=== PATIENT | female | born 1965 | race Caucasian/White ===

== ENCOUNTER 2019-07-05 06:29 | Inpatient (IN) ==
--- NOTE | 2019-06-20 12:50 | Anesthesiology Consultation ---
Date of Service June 20, 2019 Assessment & Plan (1) Encounter for pre-operative examination: - Phentermine instructions: patient advised to stop 5 days prior to surgery Chart Review Chart Review: Pending: Refer to Additional Notes / Consult section (pending preop testing (labs, EKG, CXR)) and Patient seen in Pre Admission Testing Teaching & Discussion Pre-Anesthesia Teaching/Discussion Notes: Instructed NPO after midnight before surgery,except medications with 15 cc of water. Medication instructions provided according to the PAT guidelines. History Surgery Operation Date: 07/05/19 10:40 Proposed Procedures p Right Total Hip Replacement - Anmol Jose MD Height/Weight Height: 5 ft 5 in Weight: 91.9 kg Allergies Allergy/AdvReac Type Severity Reaction Status Date / Time Sulfa (Sulfonamide AdvReac Unknown "depressed" Verified 06/20/19 12:50 Antibiotics) feeling Medications Home Medications Medication Instructions Recorded Confirmed Last Taken Vitamin D3 1 dose PO 3XWK 06/13/19 06/13/19 Unknown clonazepam 0.5 mg PO UD PRN 06/13/19 06/13/19 Unknown cyanocobalamin (vitamin B-12) 2,500 mcg PO 3XWK 06/13/19 06/13/19 Unknown [Vitamin B-12] lactobacillus combination no.4 3,000 mmu cells PO DAILY 06/13/19 06/13/19 Unknown [Probiotic] lisinopril 5 mg PO UD PRN 06/13/19 06/13/19 Unknown meloxicam 15 mg PO QAM 06/13/19 06/13/19 Unknown phentermine [Adipex-P] 37.5 mg PO 4XWK 06/13/19 06/13/19 Unknown Past Medical History Medical History Borderline high cholesterol Elevated systolic blood pressure reading without diagnosis of hypertension Intermittent elevated BP readings in setting of taking phentermine which patient takes 4x/week for weight loss. She takes lisinopril to take when she takes phentermine Obesity Osteoarthritis Exercise / Class Metabolic Activity II 4-5 Yardwork/Stairs/Walk up hill Past Family History Family History Father Family history of bone cancer Family history of kidney cancer Family history of brain cancer Family history of diabetes mellitus Past Surgical History Surgical History History of colonoscopy History of plastic surgery B/L breast lift History of tonsillectomy History of vaginal surgery cyst excision History of vascular surgery B/L LE laser procedure for "superficial veins" Past Anesthesia History No Hx of Anesthesia Complications and No Family Hx of Anesthesia Complications History of PONV No Hx of PONV and No Hx of Motion Sickness Social History Smoking Status: Former smoker Do You Dip or Chew Tobacco: No Smoking End Date: QUIT 20 YEARS AGO Hx Alcohol Use: Yes Alcohol type: hard liquor alcohol intake frequency: other Alcohol Intake Frequency Comment: WEEKENDS (10-15 DRINKS/WEEKEND TOTAL) Hx Substance Use: No substance use type: does not use Review of Systems Patient denies chest pain, shortness of breath, reflux, cough, wheezing, palpitations. Physical Exam Vital Signs Last Vital Signs Temp 36.7 C 06/20/19 12:51 Pulse 89 06/20/19 12:51 Resp 16 06/20/19 12:51 BP 133/89 06/20/19 12:51 Pulse Ox 98 06/20/19 12:51 PHYSICAL Full neck and c-spine range of motion. Full TMJ range of motion. TMD 3.5 finger breaths Mallampati Score 1 Dentition: intact, crowns on sides, temporaries will be seeded on right lower sides prior to surgery (surgeon made aware) Lungs: clear throughout to auscultation Cardiac: regular rate and rhythm, no murmurs noted Spine: normal Carotid arteries: negative bruit Extremities: no edema
--- NOTE | 2019-06-20 13:46 | XRay Report ---
XR chest Pre-admission PA/Lat CLINICAL HISTORY: Preoperative evaluation. COMPARISON STUDY: No previous studies for comparison. FINDINGS: Lung volumes are normal. Lungs are clear. There is no pneumothorax or pleural effusion. Car diac size is normal. Mediastinal contours are normal. There is no evidence for pulmonary edema. IMPRESSION: No acute cardiopulmonary findings. Electronically signed by: Car Wells M.D. 06/20/2019 1:44 PM
[2019-06-20 15:55] LABS: Basophils # (auto) 0.03 K/uL (0-0.2); Basophils % (auto) 0.4 %; Eosinophils # (auto) 0.15 K/uL (0-0.5); Hematocrit (blood only) 42.6 % (37-47); Hemoglobin 14.3 g/dL (12.0-16.0); Immature Granulocytes # (auto) 0.02 K/uL (0.00-0.02); Immature Granulocytes % (auto) 0.3 %; Lymphocytes # (auto) 2.67 K/uL (1.2-3.4); Lymphocytes % (auto) 35.5 %; Mean Corpuscular Hemoglobin 32.6 pg (25-34); Mean Corpuscular Hgb Conc 33.6 g/dL (32-36); Mean Corpuscular Volume 97.3 fL (80-100); Mean Platelet Volume 10.5 fL (7.4-10.4); Monocytes # (auto) 0.76 K/uL (0.11-0.59); Monocytes % (auto) 10.1 %; Neutrophils % (auto) 51.7 %; Platelet Count 258 K/uL (130-400); RDW Standard Deviation 46.3 fL (36.4-46.3); Red Blood Count 4.38 M/uL (4.2-5.4); White Blood Count 7.53 K/uL (4.8-10.8)
[2019-06-20 16:07] LABS: BUN Creatinine Ratio 29.9 (10-20); Creatinine Clr Calc Pharmacy 95.1 ml/min; Est GFR (Non-African American) 90.6; Potassium 4.2 mmol/L (3.5-5.1)
[2019-06-20 16:08] LABS: Partial Thromboplastin Ratio 0.9; Partial Thromboplastin Time 25.5 Seconds (21.0-31.0)
--- NOTE | 2019-07-01 18:19 | History and Physical Report ---
DATE OF ADMISSION: 07/05/2019 CHIEF COMPLAINT: Bilateral hip pain and discomfort, right side greater than left. HISTORY OF PRESENT ILLNESS: A 54-year-old white female referred for surgical treatment of her hips. She has got a 3-year history of bilateral hip pain and discomfort, describes it has gotten worse over time. The right side has been worse than the left. She has been through extensive conservative treatment in the past. She had 2 injections into the right hip and 1 on the left. It has given her some temporary relief. Nothing too long lasting. She takes Motrin which takes the edge off at best. She has become more debilitated by her pain. She has difficulty putting her shoes and socks on. The more she walks, the more it hurts. She limps all the time and worse as the day goes on. She has nighttime pain. She would like to have her hip fixed. She would like to do the right one and then the left one maybe 3 months later. PAST MEDICAL HISTORY: 1. Elevated cholesterol. 2. Mild obesity with BMI 34. 3. Arthritis. PAST SURGICAL HISTORY: Include: 1. Tonsillectomy. 2. Breast lift. 3. Cyst removed from her vaginal area. ALLERGIES: SULFA. CURRENT MEDICINES: 1. Meloxicam 15 mg a day. 2. Vitamin B12. 3. Collagen. 4. Vitamin D3. 5. Clonazepam. 6. ZzzQuil. 7. Lisinopril 5 mg a day. 8. Adipex. SOCIAL HISTORY: A 54-year-old white female patient from [place]. She is . One child. Occasional alcohol intake. She does not smoke. She does have a smoking history. FAMILY HISTORY: Significant for heart disease, diabetes, kidney cancer, bone cancer. REVIEW OF SYSTEMS: Negative for diabetes. Denies any chest pain or shortness of breath. No history of DVT or PE. No known bleeding problems. PHYSICAL EXAMINATION: GENERAL: Shows a pleasant, middle-aged female. Looks to be in pretty good health. HEENT: Benign. NECK: Supple, no lymphadenopathy. LUNGS: Clear to auscultation. HEART: Has a regular rate and rhythm. ABDOMEN: Soft, nontender, nondistended. EXTREMITIES: Grossly neurovascularly intact except as follows: Examination of both hips reveal patient walks with a waddling gait. She limps on the right side a bit more than the left. Leg lengths appear pretty equal. Both hips are very stiff. She can internally rotate to only -10 bilaterally. She can externally rotate to about 20 bilaterally. She has pain with rotation of the hips. No knee effusion. She is neurologically intact. X-RAYS: X-rays of both hips reveal advanced bilateral DJD. She has got complete loss of superior joint space bilaterally with Cam impingement. She has cystic change of the femoral head and acetabulum on both sides. She has got osteophytes off the lateral aspect of the femoral head in both sides. ASSESSMENT: A 54-year-old female with advanced bilateral hip degenerative joint disease. She has failed conservative treatment. It is really affecting her quality of life and she elected to proceed with hip replacement surgery. She would like to do the right one and then the left one 3 months later. PLAN: We will take her to the operating room and do a right total hip replacement. The risks and benefits of this procedure were explained to the patient including but not limited to DVT, PE, , infection, neurological injury, vascular injury, bleeding problem, pain, limited range of motion, stiffness, failure to relieve symptoms, incomplete relief of symptoms, need for further surgery in future, fracture, leg length inequality, nerve palsy, etc. The patient understands and desires to proceed. Informed consent was obtained. We did talk about holding her lisinopril the morning of surgery and her Meloxicam 10 days preop. She is planning to be discharged home, using home health. KEITH
[~2019-07-05 06:29] MED LIST: ACETAMINOPHEN 500 MG TAB PO SCH; BUPIVACAINE 0.5 % 5 MG/1 ML PF 10ML VIAL ONE; CEFAZOLIN 2000MG 2,000 MG/15 ML SYR IV SCH; FAMOTIDINE 20 MG TAB PO SCH; GABAPENTIN 600 MG DOSE PO SCH; LR 500ML BOLUS, THEN 15ML/HR IV SCH; LR 60ML/HR IV SCH; METOCLOPRAMIDE HCL 10 MG TABLET PO SCH; TRANEXAMIC ACID 1,000 MG **IV Pre-op IV SCH
--- NOTE | 2019-07-05 06:55 | History & Physical Bridge Note ---
Date of Service July 05, 2019 History & Physical Bridge Note I have examined the patient, reviewed the History & Physical and in the interval since the performance of the History & Physical I have noted the following changes of clinical significance: Patient with Left Hip DJD as well and wants left hip injected under anesthesia. We ill proceed with Right THR and Left HIp Injection.
[2019-07-05] MEDS ORDERED: MIDAZOLAM HCL 1 MG/ML 2ML VIAL ONE ×2 (07:25→09:02)
[2019-07-05] MEDS ORDERED: MoRPHine SULFATE PF 1 MG/ML 10 ML AMP/VIAL ONE (07:25)
[2019-07-05] MEDS ORDERED: BETAMETH SOD PHOS/ACETATE IA 6 MG/ML IM STA (07:25)
[2019-07-05] MEDS ORDERED: fentaNYL citrate 100 MCG/2 ML VIAL ONE (07:25)
[2019-07-05] MEDS ORDERED: PROPOFOL IV EMULSION 10 MG/ML 20 ML VIAL IV ONE ×2 (07:26→09:53)
[2019-07-05] MEDS: SCOPOLAMINE 1.5 MG TDSY TD SCH (07:45)
[2019-07-05] MEDS ORDERED: BUPIVACAINE 0.5 % 5 MG/1 ML MPF 30ML VIAL ONE (07:51)
[2019-07-05] MEDS ORDERED: BACITRACIN INJ 50,000 UNIT VIAL ONE (08:28)
[2019-07-05] MEDS ORDERED: BUPIVACAINE/EPINEPHRINE 0.5% MPF 1:200,000 30 ML VIAL ONE (08:28)
[2019-07-05] MEDS ORDERED: ATROPINE SULFATE 0.1 MG/ML 10ML SYR IV PRN (09:02)
[2019-07-05] MEDS ORDERED: ePHEDrine sulfate 50 MG/ML AMP IV PRN ×2 (09:02→09:03)
[2019-07-05] MEDS ORDERED: NALOXONE HCL 0.4 MG/1 ML VIAL/CARP IV PRN ×2 (09:03→11:36)
[2019-07-05] MEDS ORDERED: NALBUPHINE HCL INJ 10 MG/ML AMP IV PRN (09:03)
[2019-07-05] MEDS ORDERED: MoRPHine SULFATE PF 1 MG/ML 10 ML AMP/VIAL INT SPINAL ONE (09:03)
[2019-07-05] MEDS ORDERED: NALOXONE HCL 1 MG in SODIUM CHLORIDE 0.9% 1000ML 1,000 ML IV PRN (09:03)
[2019-07-05] MEDS ORDERED: ONDANSETRON INJ 2 MG/ML 2 ML VIAL IV PRN ×2 (09:03→11:36)
[2019-07-05] MEDS ORDERED: PROMETHAZINE HCL 25 MG in SODIUM CHLORIDE 0.9% 50 ML IV PRN (09:03)
[2019-07-05] MEDS ORDERED: HYDROmorphone INJ 0.5 MG/0.5 ML SYR IV PRN ×2 (09:03→11:36)
[2019-07-05] MEDS ORDERED: NALOXONE HCL 0.08 MG in SYRINGE 1.8 ML IV PRN (09:03)
[2019-07-05] MEDS ORDERED: LACTATED RINGER'S 500 ML IV PRN (09:03)
[2019-07-05] MEDS ORDERED: DiphenhydrAMINE HCL 50 MG/ML VIAL IV PRN (09:03)
[2019-07-05] MEDS ORDERED: PHENYLEPHRINE HCL 10 MG/ML VIAL ONE (09:11)
[2019-07-05] MEDS ORDERED: SODIUM CHLORIDE 0.9% 1000ML 1,000 ML IV SCH (09:15)
[2019-07-05] MEDS ORDERED: DC INTRASPINAL MORPHINE SCH (09:15)
[2019-07-05] MEDS ORDERED: NO NARCOTICS OR SEDATIVES SCH (09:15)
--- NOTE | 2019-07-05 10:29 | Post Operative Brief Note ---
PG Immediate Post Op with CF Date of Surgery July 05, 2019 Pre & Post Diagnosis Operation Date: 07/05/19 08:50 Pre-Op Diagnosis: Bilateral Hip Advanced Degenerative Joint Disease--Right Greater than Left Post-Op Diagnosis: Bilateral Hip Advanced Degenerative Joint Disease--Right Greater than Left Procedure Operation Date: 07/05/19 08:50 Actual Procedures p Right Total Hip Arthroplasty--Uncemented(Right) - Anmol Jose MD s Injection of Left Hip(Left) - Anmol Jose MD Surgeon Anmol Jose MD Pharmacy Intake Technician Marilin, PAC Estimated Blood Loss 200 Findings Consistent with Post-Op Diagnosis Fluids 1100 cc Specimens Specimen Description: A. Right Femoral Head Drains Verduzco Catheter (A 16 Montserratian verduzco catheter was inserted by Dayami Gifford RN, without difficulty, clear yellow urine obtained, output to be monitored by Anesthesia.) Anesthesia Type Spinal MAC Complications none Disposition Accompanied Patient To Recovery: Yes Disposition: Recovery Room
--- NOTE | 2019-07-05 10:50 | XRay Report ---
AP PELVIS, CROSSTABLE LATERAL RIGHT HIP History: Right total hip arthroplasty. Degenerative arthritis. Postop. FINDINGS: The patient is status post a right total hip arthroplasty. The hardware is intact. No fract ure or dislocation. Skin dionne are in place. IMPRESSION: Right total hip arthroplasty. No evidence for hardware complication Electronically signed by: Martinez Kaufman M.D. 07/05/2019 10:48 AM
--- NOTE | 2019-07-05 10:59 | Anesthesiology Progress Note ---
Date of Service July 05, 2019 Anesthesia Post Procedure Vital Signs Vital Signs: Temp Pulse Pulse Resp BP BP Pulse Ox 07/05/19 10:50 36.8 C 80 16 105/62 97 07/05/19 10:40 76 16 103/60 100 07/05/19 10:30 37.0 C 80 12 108/61 98 07/05/19 07:34 178/96 H 07/05/19 07:16 36.7 C 80 18 190/103 H 98 Transfer of Care Handoff Completed per policy Notes Mental Status: alert / awake / arousable and participated in evaluation Nausea / Vomiting: adequately controlled Pain: adequately controlled Airway Patency, RR, SpO2: stable & adequate BP & HR: stable & adequate Hydration State: stable & adequate Neuraxial Anesthesia: was administered and sensory block is resolving Anesthetic Complications: no major complications apparent and Pt Satisfied with anesthetic care
[2019-07-05] MEDS ORDERED: ALUMINUM/MAGNESIUM SUSP 30 ML UDC PO PRN (11:36)
[2019-07-05] MEDS ORDERED: PHENTERMINE 37.5 MG PO SCH (11:36)
[2019-07-05] MEDS ORDERED: NON-FORMULARY MEDICATION (Cyanocobalamin (Vitamin B-12) [Vitamin B-12] 2,500 MCG) PO SCH (11:36)
[2019-07-05] MEDS ORDERED: TRAMADOL HCL 50 MG TABLET PO PRN (11:36)
[2019-07-05] MEDS ORDERED: bisacodyL 10 MG SUPP PR PRN (11:36)
[2019-07-05] MEDS ORDERED: VITAMIN D3 PO SCH (11:36)
[2019-07-05] MEDS ORDERED: clonazePAM 0.5 MG TAB PO PRN (11:36)
[2019-07-05] MEDS ORDERED: METOCLOPRAMIDE HCL INJ 5 MG/ML 2 ML VIAL IV PRN (11:36)
[2019-07-05] MEDS ORDERED: lisinopriL 5 MG TAB PO PRN (11:36)
[2019-07-05] MEDS ORDERED: MAGNESIUM HYDROXIDE SUSP 30 ML UDC PO PRN (11:36)
[2019-07-05] MEDS: SODIUM CHLORIDE 0.9% 1000ML 1,000 ML IV SCH ×2 (12:28→19:40)
[2019-07-05] MEDS: KETOROLAC 30 MG/ML VIAL IV SCH ×3 (12:28→23:18)
--- NOTE | 2019-07-05 13:37 | Operative Report ---
DATE OF OPERATION: 07/05/2019 SURGEON: Anmol Jose MD SERVICE PROMOTER SALESPERSON: JUDIE Lopez PREOPERATIVE DIAGNOSIS: Bilateral hip degenerative joint disease. POSTOPERATIVE DIAGNOSIS: Bilateral hip degenerative joint disease. PROCEDURE PERFORMED: 1. Left hip injection under anesthesia. 2. Right uncemented ceramic on highly cross-linked polyethylene total hip arthroplasty. COMPLICATIONS: None. ESTIMATED BLOOD LOSS: 200 mL. FLUID REPLACEMENT: 1100 mL crystalloid fluid replacement. ANESTHESIA: Spinal. DRAINS: None. SPECIMENS: Right femoral head sent for pathology. OPERATIVE INDICATIONS: The patient is a 54-year-old female who has had a long history of bilateral hip pain and discomfort that has gradually gotten worse over the past several years. She has been through extensive conservative treatment which became less successful over time. X-rays show advanced bilateral hip DJD. The right side was bothering more than the left. She elected to proceed with right total hip arthroplasty. She was hoping to get a left hip injection around the same time under anesthesia may be to mitigate some of the left hip symptoms. She was fully aware this is just above the trochanter injection and may not help as much as some of her previous injections. OPERATIVE FINDINGS: Operative findings revealed advanced right hip DJD. She had extensive grade 4 [id number] disease of the femoral head and acetabulum. Moderate size medial osteophyte. Small anterior osteophyte. Moderate size joint effusion. OPERATIVE IMPLANTS: Operative implants consists of: 1. Biomet G7 size 48 mm acetabular shell. 2. A 6.5 cancellous acetabular screws, one at 35 mm length and one at 20 mm length. 3. An apex hole eliminator. 4. Highly cross-linked polyethylene liner with a 48 mm outer diameter and a 32 mm inner diameter. 5. DePuy Corail size 10 KLA femoral stem. 6. A +5/32 mm ceramic articular ball. OPERATIVE PROCEDURE: The patient was taken to the operating room, identified and placed on the operating table in supine position. All contact areas were appropriately padded. IV antibiotics provided by anesthesia team. Spinal anesthetic had been implemented in the holding area. Adan catheter was placed in sterile fashion. Attention was drawn to the left hip. Left hip was prepped with alcohol. A 2 mL Celestone and 8 mL Marcaine were injected in the left greater trochanteric bursa in a sterile fashion. A Band-Aid was applied. The patient was then placed in the left lateral decubitus position. An axillary roll was placed. [facility] was used for positioning. Right hip and leg were then prepped and draped in usual sterile fashion. A posterolateral approach to the right hip was then performed through a curvilinear incision centered over the greater trochanter. Sharp dissection was carried through subcutaneous tissues down to the level of the IT band and gluteal fascia. She did have a fairly thick soft tissue envelope. The IT band and gluteal fascia were then incised longitudinally in line with skin incision. The underlying greater trochanteric bursa was excised. The piriformis and external rotators as well as the posterior capsule were then released from the posterior aspect of the hip joint as a single layer. Great care was taken throughout the procedure to protect the sciatic nerve at all times. Hip was internally rotated and dislocated. Femoral neck osteotomy cut was made with the final cut about a centimeter above the lesser trochanter. Femoral head was removed and sent for pathology. Femur was retracted anteriorly. Attention was then drawn to the acetabulum. The acetabular labrum was excised. The pulvinar fat was excised. Sequential reaming of the acetabulum was then performed beginning with size 43 and progressing up to 47. A 48-mm Biomet G7 acetabular shell was then placed in about 40 degrees of lateral opening and 20 degrees of anteversion. It was fixed with two 6.5 cancellous acetabular screws. A trial liner was placed. A small anterior osteophyte was removed. Attention was then drawn to the femur. The proximal femur was entered with cookie cutter followed by canal finder. I then began broaching beginning with size 8 and progressing up to 10. We got pretty good fit with this 10. Calcar reamer was used to smoothen off the calcar. I then trialed the hip and the +5 articular ball seemed to recreate soft tissue tension appropriately. Hip was fully stable in full extension and external rotation and flexion to 90 degrees, internal rotation over [address] I elected to place these implants. All trial implants were removed. An apex hole eliminator was placed. Highly cross-linked polyethylene liner was placed. A DePuy Corail size 10 KLA femoral stem was impacted in position. A +5/32 mm ceramic articular ball was placed. Hip was located and once again found to be stable. Attention was then drawn toward closing. The wound was then irrigated with extensive amounts of pulsatile lavage solution. I did inject locally with 60 mL of 0.5% Marcaine with epinephrine. The posterior capsule and external rotators were repaired as a single layer through drill holes in the posterior trochanter. The IT band and gluteal fascia were then closed with #1 PDS suture in a running fashion. The subcutaneous tissue was then closed with 2 layers with the deep layer #2 Vicryl suture in a buried interrupted fashion followed by the subcutaneous tissue with 2-0 Dexon suture in a buried interrupted fashion. Skin was then closed with skin idonne. Leg was then cleaned, dried and a sterile dressing of Xeroform, 4 x 4's, ABD pad and foam tape was applied. The patient then transferred to the recovery room in stable condition. The patient tolerated the procedure well with no complication. All needle and sponge counts were correct at the end of the operation. I attest to the content of the Intraoperative Record and any orders documented therein. Any exception s are noted below.
[2019-07-05] MEDS: ACETAMINOPHEN 500 MG TAB PO SCH ×2 (13:46→20:18)
[2019-07-05] MEDS: CHECK SCOPOLAMINE PATCH PLACEMENT SCH ×2 (15:30→23:18)
[2019-07-05] MEDS: CEFAZOLIN 2000MG 2,000 MG/15 ML SYR IV SCH ×2 (15:31→23:23)
--- NOTE | 2019-07-05 15:54 | Progress Note ---
DATE: 07/05/2019 SUBJECTIVE: A 54-year-old white female postop from a right hip replacement and left hip injection. She is doing pretty well. Just a little bit of a burning sensation around the hip incision site. No other particular pain. No chest pain or shortness of breath. Not feeling dizzy or lightheaded. OBJECTIVE: VITAL SIGNS: Temperature 36.6. Vital signs stable. GENERAL: Shows a pleasant, middle-aged female. She is lying in bed, looks pretty comfortable. She was talking on the phone when I went in to visit her this afternoon. LUNGS: Clear to auscultation. HEART: Regular rate and rhythm. ABDOMEN: Soft, nontender, nondistended. EXTREMITIES: Grossly neurovascularly intact except as follows: Examination of both legs reveal leg lengths were equal. Examination of the right hip reveals the dressing to be clean, dry and intact. Thigh is soft and supple. Hip is located. She is neurologically intact. She can dorsiflex and plantarflex her foot appropriately. X-RAYS: X-ray of the right hip from recovery room reviewed. It shows right uncemented total hip replacement. Components looked to be in good position. No signs of problems. ASSESSMENT: A 54-year-old white female postop from right hip replacement, doing well. Pain is controlled. Hip is located. She is neurologically intact. We also injected her left hip and it seems to be doing fine. PLAN: 1. DVT prophylaxis including thigh-high TEDs, SCDs, and aspirin twice a day. 2. PT/OT. Weight bear as tolerated. Right total hip protocol. 3. Pain control, doing pretty well with current pain regimen. 4. IV antibiotics x24 hours. 5. Disposition: Plan to discharge to home with some home health once adequately recovered and medically stable.
[2019-07-05] MEDS ORDERED: TRANEXAMIC ACID 1,000 MG in 0.9 % SODIUM CHLORIDE 100 ML IV SCH (16:00)
[2019-07-05] MEDS: ASCORBIC ACID 500 MG TAB PO SCH (17:44)
[2019-07-05] MEDS: FERROUS GLUCONATE 324 MG TAB PO SCH (17:44)
[2019-07-05] MEDS: DOCUSATE SODIUM 100 MG CAP PO SCH (20:18)
[2019-07-05] MEDS: ASPIRIN 81 MG ECTAB PO SCH (20:18)
[2019-07-05] MEDS ORDERED: SENNA 8.6 MG TAB PO SCH (21:00)
[2019-07-06] MEDS ORDERED: TRAMADOL HCL 50 MG TABLET PO PRN (03:03)
[2019-07-06] MEDS ORDERED: HYDROmorphone INJ 0.5 MG/0.5 ML SYR IV PRN (03:03)
[2019-07-06] MEDS: TRAMADOL HCL 50 MG TABLET PO PRN ×3 (03:53→15:45)
[2019-07-06] MEDS: SCOPOLAMINE 1.5 MG TDSY TD SCH (05:11)
[2019-07-06 05:27] LABS: Hematocrit (blood only) 40.2 % (37-47); Immature Granulocytes # (auto) 0.03 K/uL (0.00-0.02); Immature Granulocytes % (auto) 0.3 %; Lymphocytes # (auto) 0.99 K/uL (1.2-3.4); Lymphocytes % (auto) 9.4 %; Mean Corpuscular Hemoglobin 32.9 pg (25-34); Mean Corpuscular Hgb Conc 34.8 g/dL (32-36); Mean Corpuscular Volume 94.4 fL (80-100); Mean Platelet Volume 10.1 fL (7.4-10.4); Monocytes % (auto) 6.6 %; Neutrophils # (auto) 8.82 K/uL (1.4-6.5); Neutrophils % (auto) 83.7 %; Platelet Count 271 K/uL (130-400); RDW Coefficient of Variation 12.8 % (11.5-14.5); RDW Standard Deviation 43.9 fL (36.4-46.3); Red Blood Count 4.26 M/uL (4.2-5.4); White Blood Count 10.54 K/uL (4.8-10.8)
[2019-07-06 05:51] LABS: Calcium 9.4 mg/dl (8.5-10.1); Creatinine Clr Calc Pharmacy 105.3 ml/min; Est GFR (African American) 113.9; Est GFR (Non-African American) 98.3; Potassium 4.2 mmol/L (3.5-5.1)
[2019-07-06] MEDS: ACETAMINOPHEN 500 MG TAB PO SCH ×2 (05:53→13:55)
[2019-07-06] MEDS: KETOROLAC 30 MG/ML VIAL IV SCH ×2 (05:53→12:15)
--- NOTE | 2019-07-06 07:41 | Progress Note ---
DATE: 07/06/2019 SUBJECTIVE: A 54-year-old white female postop day #1 from a right hip replacement and left hip injection. She is doing pretty well. Really not much pain when resting. Some pain and discomfort with walking. No chest pain or shortness of breath. Not feeling dizzy or lightheaded. OBJECTIVE: VITAL SIGNS: Temperature 36.8. Vital signs stable. GENERAL: Reveals a pleasant, middle-aged female who is sitting up in her bedside chair, looks comfortable. EXTREMITIES: Examination of the right hip reveals the dressing to be clean, dry and intact. Leg lengths were equal. Hip is located. She can dorsiflex and plantarflex her foot appropriately. She is neurologically intact. LABORATORY DATA: Hemoglobin 14.0. Hematocrit 40.2. Electrolytes are stable. ASSESSMENT: A 54-year-old white female postop day #1 from a right hip replacement and left hip injection. She is doing pretty well. Pain is reasonably well controlled. PLAN: 1. DVT prophylaxis including thigh-high TEDs, SCDs, and aspirin twice a day. 2. PT/OT. Weight bear as tolerated. Right total hip protocol. 3. Pain control, doing pretty well with current pain regimen. We will continue Tylenol and resume her Mobic on discharge and use tramadol as needed. 4. Disposition: Plan to discharge to home with some home health. We will see how therapy goes today.
[2019-07-06] MEDS: ASCORBIC ACID 500 MG TAB PO SCH (08:25)
[2019-07-06] MEDS: FERROUS GLUCONATE 324 MG TAB PO SCH (08:25)
[2019-07-06] MEDS: ASPIRIN 81 MG ECTAB PO SCH (08:26)
[2019-07-06] MEDS: DOCUSATE SODIUM 100 MG CAP PO SCH (08:26)
[2019-07-06] MEDS ORDERED: LACTOBACILLUS ACIDOPHILUS (FLORANEX) TAB PO SCH (09:00)
[2019-07-06] MEDS ORDERED: MULTIVITAMIN TAB PO SCH (09:00)
--- NOTE | 2019-07-09 03:29 | Discharge Summary ---
ADMITTING PHYSICIAN AND SURGEON: Dr. Anmol Jose. ADMITTING DIAGNOSIS: Bilateral hip degenerative joint disease. PROCEDURES PERFORMED: 1. Left hip injection. 2. Right total hip replacement. SECONDARY DIAGNOSES: Elevated cholesterol, mild obesity, arthritis. CONSULTS: None obtained. HISTORY AND PHYSICAL EXAMINATION: Well documented in the patient's chart. HOSPITAL COURSE: The patient was admitted on 07/05/2019 underwent total hip arthroplasty, tolerated the procedure well. There were no complications. She was transferred to the PACU postoperatively and later to the orthopedic floor for further care. She was given Ancef for antibiotic prophylaxis, DOUGIE stockings, SCDs and aspirin for DVT prophylaxis. Hemoglobin, hematocrit and vital signs were monitored during her hospital stay and remained stable, did not require any blood transfusions. There were no complications. By postoperative day 1, she was tolerating a regular diet, pain was controlled with oral pain medicine. She was participating in physical therapy. Postop day 1, she was discharged home, set up with home health services. She was given printed discharge instructions including new prescriptions for extra-strength Tylenol, aspirin, meloxicam and tramadol. Continue her home medications, continue physical therapy, weightbearing as tolerated, DOUGIE stockings, total hip precautions. Follow up in approximately 2 weeks postoperatively or sooner if there are any problems or concerns.
== END 2019-07-06 17:00 | disposition home health service (06) | DRG 470 ==
LOC: ASU 06:29 → 3E 10:33

== ENCOUNTER 2019-10-05 05:45 | Observation (INO) ==
--- NOTE | 2019-09-22 12:39 | Anesthesiology Consultation ---
Date of Service September 22, 2019 Assessment & Plan (1) Encounter for pre-operative examination: Chart Review Chart Review: Acceptable Risk for Surgery and Patient NOT seen in Pre Admission Testing Consults Requested none History Surgery Operation Date: 10/05/19 12:45 Proposed Procedures p Left Total Hip Replacement - Anmol Jose MD Height/Weight Height: 5 ft 5 in Weight: 83.915 kg Allergies Allergy/AdvReac Type Severity Reaction Status Date / Time Sulfa (Sulfonamide AdvReac Unknown "depressed" Verified 09/20/19 11:15 Antibiotics) feeling Medications Home Medications Medication Instructions Recorded Confirmed Last Taken Probiotic 3,000 mmu cells PO DAILY 06/13/19 09/20/19 Unknown clonazepam 0.5 mg PO UD PRN 06/13/19 09/20/19 07/04/19 18:00 cyanocobalamin (vitamin B-12) 2,500 mcg PO 3XWK 06/13/19 09/20/19 Unknown [Vitamin B-12] lisinopril 5 mg PO UD PRN 06/13/19 09/20/19 06/27/19 meloxicam 15 mg PO QAM 06/13/19 09/20/19 06/25/19 phentermine [Adipex-P] 37.5 mg PO 4XWK 06/13/19 09/20/19 06/25/19 celecoxib 200 mg capsule 200 mg PO DAILY PRN #30 cap 08/08/19 09/20/19 Unknown diclofenac sodium 75 mg 75 mg PO BID PRN #60 tab 08/15/19 09/20/19 Unknown tablet,delayed release cholecalciferol (vitamin D3) 1,000 unit PO DAILY 09/20/19 09/20/19 Unknown [Vitamin D3] Past Medical History Medical History Borderline high cholesterol NO MEDICATION Degenerative joint disease of both hips Elevated systolic blood pressure reading without diagnosis of hypertension Intermittent elevated BP readings in setting of taking phentermine which patient takes 4x/week for weight loss. She takes lisinopril to take when she takes phentermine Osteoarthritis Past Family History Family History Father Family history of bone cancer Family history of kidney cancer Family history of brain cancer Family history of diabetes mellitus Past Surgical History Surgical History History of colonoscopy History of plastic surgery B/L breast lift History of right hip replacement History of tonsillectomy History of vaginal surgery cyst excision History of vascular surgery B/L LE laser procedure for "superficial veins" Social History Smoking Status: Never smoker Do You Dip or Chew Tobacco: No Hx Alcohol Use: Yes Alcohol type: wine alcohol intake frequency: a few times a month Hx Substance Use: No substance use type: does not use Testing Laboratory Results Laboratory Tests 08/22/19 08/22/19 08/22/19 11:28 11:28 11:28 WBC 6.14 Hgb 13.6 Plt Count 274 PT 10.1 INR 1.0 Sodium 137 Potassium 3.8 Chloride 106 Carbon Dioxide 27 BUN 18 Creatinine 0.60 Glucose 98 Electrocardiogram Date: 06/20/19 Findings: + NSR @ (88 bpm) Chest X-Ray Date: 06/20/19 Findings: + NAD
[2019-10-05] MEDS ORDERED: CEFAZOLIN 2000MG 2,000 MG/15 ML SYR IV SCH (06:00)
[2019-10-05] MEDS ORDERED: GABAPENTIN 600 MG DOSE PO SCH (06:00)
[2019-10-05] MEDS ORDERED: LR 60ML/HR IV SCH (06:00)
[2019-10-05] MEDS ORDERED: METOCLOPRAMIDE HCL 10 MG TABLET PO SCH (06:00)
[2019-10-05] MEDS ORDERED: LR 500ML BOLUS, THEN 15ML/HR IV SCH (06:00)
[2019-10-05] MEDS ORDERED: SCOPOLAMINE 1.5 MG TDSY TD SCH (06:00)
[2019-10-05] MEDS ORDERED: TRANEXAMIC ACID 1,000 MG **IV Pre-op IV SCH (06:00)
[2019-10-05] MEDS ORDERED: FAMOTIDINE 20 MG TAB PO SCH (06:00)
[2019-10-05] MEDS ORDERED: ACETAMINOPHEN 500 MG TAB PO SCH (06:00)
[2019-10-05] MEDS ORDERED: BUPIVACAINE 0.5 % 5 MG/1 ML PF 10ML VIAL ONE (06:29)
--- NOTE | 2019-10-05 07:00 | History & Physical Bridge Note ---
Date of Service October 05, 2019 History & Physical Bridge Note I have examined the patient, reviewed the History & Physical and in the interval since the performance of the History & Physical I have noted the following changes of clinical significance: no changes noted
--- NOTE | 2019-10-05 07:00 | History & Physical Report ---
Date of Service October 05, 2019 Assessment & Plan (1) Degenerative joint disease of both hips: Proceed with Left Hip Replacement Present on Admission?: Yes History of Present Illness Chief Complaint: Left Hip Pain Primary Care Provider: Celestina Ramey 3 years left hip pain. Failed conservative care. Allergies Allergy/AdvReac Type Severity Reaction Status Date / Time Sulfa (Sulfonamide AdvReac Unknown "depressed" Verified 10/05/19 06:33 Antibiotics) feeling Home Medications Home Medications Medication Instructions Recorded Confirmed Type Probiotic 3,000 mmu cells PO DAILY 06/13/19 10/05/19 History clonazepam 0.5 mg PO UD PRN 06/13/19 10/05/19 History cyanocobalamin (vitamin B-12) 2,500 mcg PO 3XWK 06/13/19 10/05/19 History [Vitamin B-12] lisinopril 5 mg PO UD PRN 06/13/19 10/05/19 History phentermine [Adipex-P] 37.5 mg PO 4XWK 06/13/19 10/05/19 History diclofenac sodium 75 mg 75 mg PO BID PRN #60 tab 08/15/19 10/05/19 Rx tablet,delayed release cholecalciferol (vitamin D3) 1,000 unit PO DAILY 09/20/19 10/05/19 History [Vitamin D3] acetaminophen [Tylenol Extra 1,000 mg PO Q8 PRN 10/05/19 10/05/19 History Strength] Past Med/Surg History Medical History Borderline high cholesterol NO MEDICATION Degenerative joint disease of both hips Elevated systolic blood pressure reading without diagnosis of hypertension Intermittent elevated BP readings in setting of taking phentermine which patient takes 4x/week for weight loss. She takes lisinopril to take when she takes phentermine Osteoarthritis Surgical History History of colonoscopy History of plastic surgery B/L breast lift History of right hip replacement History of tonsillectomy History of vaginal surgery cyst excision History of vascular surgery B/L LE laser procedure for "superficial veins" Family History Father Family history of bone cancer Family history of kidney cancer Family history of brain cancer Family history of diabetes mellitus Social History Preferred Language: Maori Communication Ability: Effective Reservoir Engineer Required: No Beliefs That Will Affect Care: None Current Living Situation: Spouse Other Information That Helps Us Care for You: No Feels Safe at Home: Yes Safety Concerns: Feels Safe At This Time Smoking Status: Never smoker Do You Dip or Chew Tobacco: No ; Second Hand Exposure: No ; Tobacco Cessation Education Requested by Patient: No Hx Alcohol Use: Yes Alcohol type: wine Hx Substance Use: No Review of Systems All systems reviewed & are unremarkable except as noted in HPI & below Physical Exam 2 Constitutional: WD/WN, vitals as above Eyes: PERRL, conjunctivae normal, anicteric sclerae Neck: trachea midline, no thyromegaly Respiratory: normal respiratory effort, lungs clear to auscultation Cardiovascular: RRR, no murmur, no edema Musculoskeletal: Walks with limp. Pain with HIp ROM. N/V intact. Skin: no rashes, warm and dry Neurologic: patellar DTR's 2+ bilat, sensation intact Results & Data Vital Signs (Past 12 Hours) Vital Signs Temp Pulse Resp BP Pulse Ox 10/05/19 06:47 36.6 C 77 18 176/98 H 98
[2019-10-05] MEDS ORDERED: MIDAZOLAM HCL 1 MG/ML 2ML VIAL ONE ×2 (07:39→09:24)
[2019-10-05] MEDS ORDERED: MoRPHine SULFATE PF 1 MG/ML 10 ML AMP/VIAL ONE (07:51)
[2019-10-05] MEDS ORDERED: ePHEDrine sulfate 50 MG/ML AMP IV PRN ×2 (07:54→09:03)
[2019-10-05] MEDS ORDERED: ATROPINE SULFATE 0.1 MG/ML 10ML SYR IV PRN (07:54)
[2019-10-05] MEDS ORDERED: ONDANSETRON INJ 2 MG/ML 2 ML VIAL IV PRN ×2 (07:54→09:04)
[2019-10-05] MEDS ORDERED: fentaNYL citrate 100 MCG/2 ML VIAL IV PRN (07:54)
[2019-10-05] MEDS ORDERED: BUPIVACAINE 0.5 % 5 MG/1 ML MPF 30ML VIAL ONE (08:55)
[2019-10-05] MEDS ORDERED: EPINEPHrine INJ 1 MG/ML AMP ONE (08:55)
[2019-10-05] MEDS ORDERED: BACITRACIN INJ 50,000 UNIT VIAL ONE (08:55)
[2019-10-05] MEDS ORDERED: DiphenhydrAMINE HCL 50 MG/ML VIAL IV PRN (09:03)
[2019-10-05] MEDS ORDERED: NALOXONE HCL 1 MG in SODIUM CHLORIDE 0.9% 1000ML 1,000 ML IV PRN (09:03)
[2019-10-05] MEDS ORDERED: NALOXONE HCL 0.4 MG/1 ML VIAL/CARP IV PRN (09:03)
[2019-10-05] MEDS ORDERED: NALOXONE HCL 0.08 MG in SYRINGE 1.8 ML IV PRN (09:03)
[2019-10-05] MEDS ORDERED: MoRPHine SULFATE PF 1 MG/ML 10 ML AMP/VIAL INT SPINAL ONE (09:03)
[2019-10-05] MEDS ORDERED: NALBUPHINE HCL INJ 10 MG/ML AMP IV PRN (09:03)
[2019-10-05] MEDS ORDERED: LACTATED RINGER'S 500 ML IV PRN (09:03)
[2019-10-05] MEDS ORDERED: MoRPHine SULFATE 2 MG/ML CARP IV PRN (09:04)
[2019-10-05] MEDS ORDERED: NO NARCOTICS OR SEDATIVES SCH (09:15)
[2019-10-05] MEDS ORDERED: DC INTRASPINAL MORPHINE SCH (09:15)
[2019-10-05] MEDS ORDERED: LIDOCAINE HCL 2% 2 ML VIAL/AMP(20MG/ML) INFIL ONE (09:19)
[2019-10-05] MEDS ORDERED: DEXAMETHASONE SOD INJ 4 MG/ML VIAL ONE (09:19)
[2019-10-05] MEDS ORDERED: ONDANSETRON INJ 2 MG/ML 2 ML VIAL ONE (09:19)
[2019-10-05] MEDS ORDERED: PROPOFOL IV EMULSION 10 MG/ML 20 ML VIAL IV ONE ×4 (09:19→10:40)
--- NOTE | 2019-10-05 11:11 | Post Operative Brief Note ---
PG Immediate Post Op with CF Date of Surgery October 05, 2019 Pre & Post Diagnosis Operation Date: 10/05/19 08:45 Pre-Op Diagnosis: Left Hip Degenerative Joint Disease Post-Op Diagnosis: Left Hip Degenerative Joint Disease I identified the patient and participated in the time-out.: Yes Procedure Operation Date: 10/05/19 08:45 Actual Procedures p Left Total Hip Arthroplasty--Uncemented(Left) - Anmol Jose MD Surgeon Anmol Jose MD Pet House Sitter Marilin, PAC Estimated Blood Loss 300 Findings Consistent with Post-Op Diagnosis Fluids 1600 cc Specimens Specimen Description: Permanent A: Left Femoral Head Drains Adan Catheter Anesthesia Type Spinal MAC Complications none Disposition Accompanied Patient To Recovery: Yes Disposition: Recovery Room
--- NOTE | 2019-10-05 11:49 | XRay Report ---
XR hip 1V LT w pelvis CLINICAL HISTORY: IN PACU - A/P PELVIS and LATERAL HIP COMPARISON: 07/05/2019 DISCUSSION: There is no change in the appearance of a total right hip arthroplasty. There is now evid ence for a total left hip arthroplasty. There are no acute fractures or dislocations. The femoral and acetabular components appear well seated. There is air within the soft tissues consistent with recen t surgery. There are overlying skin dionne. IMPRESSION: Interval total left hip arthroplasty. ACT 112: Negative or not required by law. Electronically signed by: Augustus Abbott M.D. 10/05/2019 11:48 AM
--- NOTE | 2019-10-05 12:08 | Anesthesiology Progress Note ---
Date of Service October 05, 2019 Anesthesia Post Procedure Vital Signs Vital Signs: Temp Pulse Pulse Resp BP Pulse Ox 10/05/19 11:50 67 14 117/74 100 10/05/19 11:40 36.3 C L 76 17 125/76 100 10/05/19 11:30 70 14 110/74 100 10/05/19 11:20 79 24 122/69 96 10/05/19 11:12 36.2 C L 81 16 109/73 100 10/05/19 06:47 36.6 C 77 18 176/98 H 98 Pain Intensity Left Hip: Pain Intensity: 2 Transfer of Care Handoff Completed per policy Notes Mental Status: alert / awake / arousable and participated in evaluation Patient Amnestic to Procedure: Yes Nausea / Vomiting: adequately controlled Pain: adequately controlled Airway Patency, RR, SpO2: stable & adequate BP & HR: stable & adequate Hydration State: stable & adequate Neuraxial Anesthesia: was administered and sensory block is resolving Anesthetic Complications: no major complications apparent and Pt Satisfied with anesthetic care
[2019-10-05] MEDS ORDERED: ALUMINUM/MAGNESIUM SUSP 30 ML UDC PO PRN (12:11)
[2019-10-05] MEDS ORDERED: METOCLOPRAMIDE HCL INJ 5 MG/ML 2 ML VIAL IV PRN (12:11)
[2019-10-05] MEDS ORDERED: MAGNESIUM HYDROXIDE SUSP 30 ML UDC PO PRN (12:11)
[2019-10-05] MEDS ORDERED: lisinopriL 5 MG TAB PO PRN (12:11)
[2019-10-05] MEDS ORDERED: PHENTERMINE 37.5 MG PO SCH (12:11)
[2019-10-05] MEDS ORDERED: bisacodyL 10 MG SUPP PR PRN (12:11)
[2019-10-05] MEDS: SODIUM CHLORIDE 0.9% 1000ML 1,000 ML IV SCH ×3 (14:28→22:37)
[2019-10-05] MEDS: ACETAMINOPHEN 500 MG TAB PO SCH ×2 (14:38→21:19)
[2019-10-05] MEDS: CHECK SCOPOLAMINE PATCH PLACEMENT SCH ×2 (16:07→23:58)
[2019-10-05] MEDS: CEFAZOLIN 2000MG 2,000 MG/15 ML SYR IV SCH ×2 (16:40→23:58)
[2019-10-05] MEDS ORDERED: TRANEXAMIC ACID / 0.7% NACL 1,000 MG/100 ML BAG IV SCH (17:15)
[2019-10-05] MEDS: FERROUS GLUCONATE 324 MG TAB PO SCH (17:48)
[2019-10-05] MEDS: ASCORBIC ACID 500 MG TAB PO SCH (17:48)
--- NOTE | 2019-10-05 18:20 | Operative Report ---
Post Operative Report Pre & Post Diagnosis Operation Date: 10/05/19 08:45 Pre-Op Diagnosis: Left Hip Degenerative Joint Disease Post-Op Diagnosis: Left Hip Degenerative Joint Disease I identified the patient and participated in the time-out.: Yes Procedure Operation Date: 10/05/19 08:45 Actual Procedures p Left Total Hip Arthroplasty--Uncemented(Left) - Anmol Jose MD Surgeon Anmol Jose MD System Administrator Marilin, PAC Estimated Blood Loss 300 Findings Consistent with Post-Op Diagnosis Operative findings revealed advanced left hip DJD. She had grade 4 [id number] disease of the femoral head and acetabulum. She did not have a lot of osteophyte formation. She did have a very large and thick soft tissue envelope. Fluids 1600 cc Specimens Left femoral head sent for pathology. Drains None. Anesthesia Type Spinal MAC Complications none Disposition Accompanied Patient To Recovery: Yes Disposition: Recovery Room Indications Patient is a 54-year-old female is had a several year history of increasing bilateral hip pain discomfort. She failed all conservative care. She underwent a right hip replacement about 3 months ago is done extremely well from this. She continued to be debilitated by her left hip pain. X-rays show advanced hip arthritis. She like to proceed with left total hip arthroplasty. Description of Procedure Operative implants consisted of: 1. Biomet G7 size 48 mm acetabular shell. 2. 6.5 cancellus acetabular screws 1 of 35 mm in length and 125 mm length. 3. Highly cross-linked polyethylene liner with a 48 mm outer diameter 32 mm diameter. Number 4. [place] hole eliminator. 5. Depuy Corail size 11 KLA femoral stem. 6. +5/32 mm ceramic articular ball. Patient was taken to the operating room identified and placed on the operating room table in supine position. A contact areas were properly padded. IV antibiotics were prescribed by anesthesia team. A spinal anesthetic and been implemented holding area. Adan catheter was placed in sterile fashion. Patient then placed in the right lateral decubitus position. Axillary roll was placed. Stulberg hip positioner was used for positioning. The left hip and leg were then prepped and draped in the usual sterile fashion. A posterior lateral approach of the left hip was then performed through a curvilinear incision centered over the greater trochanter. Sharp lysis syndrome was carried out through subcutaneous tissue down to level the IT band gluteal fascia. She had a very thick soft tissue envelope. The IT band gluteal fascia were then incised longitudinally in line with skin incision. The underlying greater truck bursa was excised. The piriformis and external rotators and the posterior capsule were then released from the posterior aspect of the hip joint as a single layer. Great care was taken throughout the procedure to protect the sciatic nerve at all times. Hip was internally rotated and dislocated. Femoral neck osteotomy cut was made with a final cut 1 cm above the lesser trochanter which was similar to the opposite side. The femoral head was removed and sent for pathology. The femur was retracted anteriorly. Attention drawn the acetabulum. The acetabular labrum was excised. The pulmonary fat was excised. Sequential reaming the acetabulum was then performed begin with size 43 and progressing up to 47. A 48 mm Biomet G7 acetabular shell was then placed in about 40 degrees lateral opening and 20 degrees of anteversion. It was fixed with two 6.5 cancellus acetabular screws. Some small osteophytes were removed anteriorly. And trial liner was placed. Attention down the femur.. The proximal femur was entered with a cookie-cutter followed by canal finder. I then broached begin the size 8 and progressing up to 11. Got excellent fit at the 11. Calcar reamer was used to smooth off the calcar. Then trialed the hip with a +5 articular ball provided full stability in full extension and external rotation and flexion to 90 degrees and internal rotation to over 50 degrees. Leg lengths seemed appropriate soft tissues and seemed appropriate. These are the same size implants on the opposite side we elect to place these implants. All trial implants were removed. An apex hole eliminator was placed. Highly cross-linked polyethylene liner was placed. A Yoel Josefa size 11 KLA femoral stem was impacted in position. +5/32 mm ceramic articular ball was placed. Hip was located once again found to be stable. Attention drawn toward closing. The wound was irrigated with copious pulsatile lavage solution. I injected locally with 60 cc of half percent Marcaine with epinephrine. The posterior capsule and external rotators were then repaired through drill holes in the posterior trochanter as a single layer with #2 Tycron suture. The IT band gluteal fascia then closed in 1 PDS suture in running fashion the subcutaneous tissues were then closed with #2-0 Vicryl suture in a buried interrupted fashion followed by 2-0 Dexon suture in a buried interrupted fashion more superficially. The skin was then closed with skin dionne. I then cleaned the wound site and placed a Pravena wound VAC in order to maximize healing and limited infection in this a very thick soft tissue envelope. Patient then transferred to the recovery room in stable condition. The patient tolerated procedure well no complications. I attest to the content of the Intraoperative Record and any orders documented therein. Any exceptions are noted below.
[2019-10-05] MEDS: DOCUSATE SODIUM 100 MG CAP PO SCH (20:22)
[2019-10-05] MEDS: ASPIRIN 81 MG ECTAB PO SCH (20:22)
--- NOTE | 2019-10-05 20:49 | Progress Note ---
DATE: 10/05/2019 SUBJECTIVE: A 54-year-old white female postop from a left hip replacement. She is doing well. Minimal pain. No chest pain or shortness of breath. Not feeling dizzy or lightheaded. OBJECTIVE: VITAL SIGNS: Temperature 36.3. Vital signs stable. GENERAL: Shows a pleasant, middle-aged female. She is sitting up in bed, looks comfortable. LUNGS: Clear to auscultation. HEART: Has a regular rate and rhythm. ABDOMEN: Soft, nontender, nondistended. EXTREMITIES: Grossly neurovascularly intact except as follows: Examination of the left hip reveals the leg lengths to be equal. Dressing is clean, dry and intact. Thigh is soft and supple. She is neurologically intact. She can dorsiflex and plantarflex her foot appropriately. X-RAYS: X-rays of the left hip from recovery room reviewed. It shows a left uncemented total hip arthroplasty. Components looked to be in good position. No signs of problems. ASSESSMENT: A 54-year-old white female postop from a left hip replacement, doing well. Her pain is controlled. Hip is located. She is neurologically intact. PLAN: 1. DVT prophylaxis including thigh-high TEDs, SCDs, and aspirin twice a day. 2. PT/OT. Weight bear as tolerated. Left total hip protocol. 3. Pain control, doing pretty well with current pain regimen. 4. IV antibiotics x24 hours. 5. Disposition: Plan to discharge to home with some home health once adequately recovered and medically stable.
[2019-10-05] MEDS ORDERED: SENNA 8.6 MG TAB PO SCH (21:00)
[2019-10-06] MEDS ORDERED: clonazePAM 0.5 MG TAB PO PRN (03:03)
[2019-10-06] MEDS ORDERED: ONDANSETRON INJ 2 MG/ML 2 ML VIAL IV PRN (03:03)
[2019-10-06] MEDS ORDERED: TRAMADOL HCL 50 MG TABLET PO PRN (03:03)
[2019-10-06] MEDS ORDERED: HYDROmorphone INJ 0.5 MG/0.5 ML SYR IV PRN (03:03)
[2019-10-06] MEDS ORDERED: NALOXONE HCL 0.4 MG/1 ML VIAL/CARP IV PRN (03:03)
[2019-10-06] MEDS: KETOROLAC 30 MG/ML VIAL IV SCH ×2 (05:37→11:26)
[2019-10-06] MEDS: ACETAMINOPHEN 500 MG TAB PO SCH (05:37)
[2019-10-06 07:24] LABS: Basophils # (auto) 0.01 K/uL (0-0.2); Basophils % (auto) 0.1 %; Eosinophils # (auto) 0.01 K/uL (0-0.5); Eosinophils % (auto) 0.1 %; Hematocrit (blood only) 36.9 % (37-47); Hemoglobin 12.3 g/dL (12.0-16.0); Immature Granulocytes # (auto) 0.02 K/uL (0.00-0.02); Immature Granulocytes % (auto) 0.2 %; Lymphocytes # (auto) 1.93 K/uL (1.2-3.4); Lymphocytes % (auto) 23.2 %; Mean Corpuscular Hemoglobin 32.1 pg (25-34); Mean Corpuscular Hgb Conc 33.3 g/dL (32-36); Mean Corpuscular Volume 96.3 fL (80-100); Mean Platelet Volume 10.2 fL (7.4-10.4); Monocytes # (auto) 0.98 K/uL (0.11-0.59); Monocytes % (auto) 11.8 %; Neutrophils # (auto) 5.37 K/uL (1.4-6.5); Neutrophils % (auto) 64.6 %; Platelet Count 220 K/uL (130-400); RDW Coefficient of Variation 12.9 % (11.5-14.5); Red Blood Count 3.83 M/uL (4.2-5.4); White Blood Count 8.32 K/uL (4.8-10.8)
--- NOTE | 2019-10-06 07:25 | Orthopedic Progress Note ---
Date of Service October 06, 2019 Assessment & Plan (1) History of hip replacement: PT/OT wbat and total hip precautions Pain is reasonably controlled dvt prophylaxis: teds, scds, and aspirin continue prevena dressing to left hip discharge possibly home today with home health if doing well with PT and pain controlled. She was seen and examined by Dr. Jose today. Subjective POD #1 from Left GABRIELLE. She is doing pretty well. Pain is reasonably controlled although she said this has been more painful than her other hip was. No other complaints. Physical Exam Physical Exam: alert and oriented. NAD Dressing intact/prevena to left hip. She is NVI. Hip is located. good alignment of left leg. Results & Data Vital Signs (Past 12 Hours) Vital Signs Temp Pulse Resp BP Pulse Ox 10/06/19 04:20 36.8 C 80 16 127/86 98 10/06/19 03:03 16 92 10/06/19 01:52 15 92 10/06/19 00:55 16 93 10/06/19 00:01 16 96 10/05/19 23:05 37 C 74 16 116/78 95 10/05/19 22:59 18 97 10/05/19 21:54 18 81 L 10/05/19 21:00 16 97 10/05/19 20:00 18 98 PG Care Time/CCT Total # of Minutes Spent Total Time Spent with Patient: Total time spent is greater than 50% in coordination of care (as documented) at patient's floor/unit and/or counseling patient: Coding Level of Care Code None Diagnoses History of hip replacement Z96.649
[2019-10-06 07:50] LABS: BUN Creatinine Ratio 18.5 (10-20); Calcium 9.3 mg/dl (8.5-10.1); Creatinine Clr Calc Pharmacy 111.1 ml/min; Est GFR (Non-African American) 99.2; Potassium 3.8 mmol/L (3.5-5.1)
[2019-10-06] MEDS ORDERED: LACTOBACILLUS ACIDOPHILUS (FLORANEX) TAB PO SCH (09:00)
[2019-10-06] MEDS ORDERED: CHOLECALCIFEROL 1,000 UNITS 25 MCG TAB PO SCH (09:00)
[2019-10-06] MEDS ORDERED: MULTIVITAMIN TAB PO SCH (09:00)
[2019-10-06] MEDS: DOCUSATE SODIUM 100 MG CAP PO SCH (09:22)
[2019-10-06] MEDS: ASCORBIC ACID 500 MG TAB PO SCH (09:23)
[2019-10-06] MEDS: FERROUS GLUCONATE 324 MG TAB PO SCH (09:23)
[2019-10-06] MEDS: ASPIRIN 81 MG ECTAB PO SCH (09:23)
[2019-10-06] MEDS: SODIUM CHLORIDE 0.9% 1000ML 1,000 ML IV SCH (09:26)
[2019-10-07] MEDS ORDERED: CYANOCOBALAMIN (VITAMIN B-12) 2,500 MCG TAB.SUBL SL SCH (09:00)
--- NOTE | 2019-10-07 16:33 | Discharge Summary ---
ADMITTING PHYSICIAN AND SURGEON: Dr. Anmol Jose. ADMITTING DIAGNOSIS: Left hip degenerative joint disease. SURGERY PERFORMED: Left total hip arthroplasty. SECONDARY DIAGNOSES: Elevated cholesterol, degenerative joint disease, hypertension and osteoarthritis. CONSULTS: None obtained. HISTORY AND PHYSICAL EXAMINATION: Well documented in the patient's chart. HOSPITAL COURSE: The patient was admitted on 10/05/2019 and underwent total hip arthroplasty, tolerated the procedure well. There were no complications. She was transferred to the PACU postoperatively and later to the orthopedic for further care. She was given Ancef for antibiotic prophylaxis, DOUGIE stockings, SCDs and aspirin for DVT prophylaxis. Hemoglobin, hematocrit and vital signs were monitored during her hospital stay and remained stable. She did not require any blood transfusions. There were no complications. By postoperative day 1, she was tolerating a regular diet, pain was controlled with oral pain medicine. She was participating in physical therapy. Postop day 1, she was discharged home, set up with home health services. She was given printed discharge instructions including new prescriptions for extra strength Tylenol, aspirin and tramadol. Continue home medicines. Continue physical therapy, weightbearing as tolerated, DOUGIE stockings, total hip precautions. Follow up approximately 2 weeks postop or sooner if there are any problems or concerns.
== END 2019-10-06 12:07 | disposition home health service (06) | DRG 470 ==
LOC: ASU 05:45 → INTOOBSV 11:15 → 3E 11:15